=== PATIENT | female | born 1970 | race Caucasian/White ===

== ENCOUNTER 2016-07-10 23:23 | Observation (INO) | payer OTHER ==
[~2016-07-10] VITALS: Ht 165.1 cm; Wt 58.4 kg
[~2016-07-10 23:23] MED LIST: ACET-1256 PO; CITA10TA8 PO; IBUP-103 PO; OXYC1TAB3 PO
[2016-07-10] MEDS ORDERED: MULTI-VITAMIN INFUSION INJ 10 ML, THIAMINE HCL INJ 100 MG, FoLIC ACID INJ 1 MG in SODIU... IV ONE (23:45)
--- NOTE | 2016-07-10 23:49 | EMERGENCY ROOM VISIT NOTE ---
History Report prepared by Flor: Warner Lion Under the Supervision of: Dr. Samuel Sears M.D. First contact with patient: 23:27 Chief Complaint: NEURO SYMPTOMS Stated Complaint: NEURO SYMPTOMS/ALCOHOL USE History of Present Illness The patient is a 46 year old female who presents to the Emergency Room with complaints of sudden onset left sided facial numbness that began shortly prior to arrival. The patient states that it feels as though she was "shot up with Novocain" in the left side of her face. She is also complaining of left sided blurred vision, and dull left sided arm pain. The patient also noted a sharp pain in the center of her forehead that is radiating to the top of her head. The patient has a history of migraine headaches. She denies falling or hitting her head. The patient does admit to drinking 5-7 beers this evening prior to arrival. Source of History: patient Onset: Shortly [employer] Position: head (Left sided face) Quality: numbness Timing: other (Sudden Onset) Note: Left sided arm pain, left sided blurred vision Review of Systems See HPI for pertinent positives & negatives. A total of 10 systems reviewed and were otherwise negative. Past Medical & Surgical Medical Problems: (1) History of blood clot, left arm (2) left sided facial numbness (3) Numbness and tingling of left side of face (4) TIA (transient ischemic attack) Surgical Problems: (1) No history of previous surgery Family History FH: cancer Social History Smoking Status: Current Every Day Smoker Alcohol Use: occasionally Marital Status: Occupation Status: employed Current/Historical Medications Scheduled Citalopram Hydrobromide (Celexa), 40 MG PO DAILY Scheduled PRN Acetaminophen (Tylenol), 1,000 MG PO Q6H PRN for Pain Ibuprofen Tab (Advil), 400-600 MG PO Q6H PRN for Pain Allergies Coded Allergies: No Known Allergies (Verified , 07/11/16) Physical Exam Vital Signs Date Time Temp Pulse Resp B/P Pulse Ox O2 Delivery O2 Flow Rate FiO2 07/11/16 01:23 97 20 07/11/16 00:58 110/70 07/11/16 00:53 89 17 07/11/16 00:28 121/82 07/11/16 00:23 103 21 07/11/16 00:22 91 18 121/71 96 Room Air 2/11/17 00:15 121/71 07/10/16 23:39 88 07/10/16 23:26 36.9 91 18 127/84 94 Room Air 07/10/16 23:26 Room Air 07/10/16 23:25 127/84 Physical Exam GENERAL: Patient is moderately intoxicated on exam, smells heavily of alcohol, but with clear speech. HEENT: No acute trauma, normocephalic atraumatic, mucous membranes moist, no nasal congestion, no scleral icterus. NECK: No stridor, no adenopathy, no meningismus, trachea is midline. LUNGS: No dyspnea. Clear to auscultation and equal bilaterally. No wheeze, no rhonchi. HEART: Regular rate and rhythm. No murmurs, rubs, gallops appreciated. ABDOMEN: Soft, nontender, bowel sounds positive, no masses appreciated, no peritonitis. BACK: No midline tenderness, no CVA tenderness EXTREMITIES: Normal motion all extremities, no cyanosis, no edema. NEUROLOGIC: She has a perceived decreased sensation of her left face. Alert and oriented, no acute motor or sensory deficits, no focal weakness, cranial nerves grossly intact. SKIN: No rash, no jaundice, no diaphoresis. Medical Decision & Procedures ER Provider Diagnostic Interpretation: X ray results and stated below per my interpretation and radiologist interpretation. Other radiology results and stated below per my review and radiologist interpretation: CT SCAN OF THE BRAIN WITHOUT IV CONTRAST CLINICAL HISTORY: Intoxication. Left facial tingling. COMPARISON STUDY: No priors. TECHNIQUE: Unenhanced axial CT scan of the brain is performed from the vertex to the skull base. Automated dose control exposure was utilized. CT DOSE: 537.48 mGy.cm FINDINGS: Brain parenchyma: The brain parenchyma is normal in appearance. There is no hemorrhage, mass effect, or evidence of acute territorial ischemia by CT criteria. George-white matter is preserved. No extra-axial fluid collection is seen. Ventricles, sulci, cisterns: Normal in configuration. Intracranial vasculature: The visualized intracranial vasculature at the skull base is normal in appearance. Calvarium: Unremarkable. Sinuses and mastoids: The visualized paranasal sinuses are clear. The mastoid air cells are well pneumatized. Orbits: The bony orbits are grossly intact. IMPRESSION: No acute intracranial abnormality. Electronically signed by: Maikel Mullen M.D. 07/11/2016 12:06 AM Dictated Date/Time: 07/11/2016 12:03 AM Laboratory Results 07/10/16 23:55 Red Blood Count 4.61, Mean Corpuscular Volume 94.8, Mean Corpuscular Hemoglobin 33.0, Mean Corpuscular Hemoglobin Concent 34.8, Mean Platelet Volume 10.2, Neutrophils (%) (Auto) 47.5, Lymphocytes (%) (Auto) 44.1, Monocytes (%) (Auto) 6.3, Eosinophils (%) (Auto) 1.3, Basophils (%) (Auto) 0.6, Neutrophils # (Auto) 3.91, Lymphocytes # (Auto) 3.63, Monocytes # (Auto) 0.52, Eosinophils # (Auto) 0.11, Basophils # (Auto) 0.05 07/10/16 23:55 Test 07/10/16 23:45 07/10/16 23:55 Urine Color YELLOW Urine Appearance CLEAR (CLEAR) Urine pH 5.5 (4.5-7.5) Urine Specific [place] 1.000 (1.000-1.030) Urine Protein NEG (NEG) Urine Glucose (UA) NEG (NEG) Urine Ketones NEG (NEG) Urine Occult Blood 3+ (NEG) Urine Nitrite NEG (NEG) Urine Bilirubin NEG (NEG) Urine Urobilinogen NEG (NEG) Urine Leukocyte Esterase NEG (NEG) Urine WBC (Auto) /hpf (0-5) Urine RBC (Auto) /hpf (0-4) Urine Hyaline Casts (Auto) /lpf (0-5) Urine Epithelial Cells (Auto) /lpf (0-5) Urine Bacteria (Auto) (NEG) Urine RBC 5-10 /hpf (0-4) Urine WBC 0 /hpf (0-5) Urine Epithelial Cells >30 /lpf (0-5) Urine Bacteria 1+ (NEG) Urine Yeast (Auto) (NONE PRSENT) Urine Test NEG (NEG) Urine Opiates Screen NEG (NEG) Urine Methadone, Qualitative NEG (NEG) Urine Barbiturates NEG (NEG) Urine Phencyclidine (PCP) Level NEG (NEG) Ur Amphetamine/Methamphetamine NEG (NEG) MDMA (Ecstasy) Screen NEG (NEG) Urine Benzodiazepines Screen NEG (NEG) Urine Cocaine Metabolite NEG (NEG) Urine Marijuana (THC) NEG (NEG) White Blood Count 8.24 K/uL (4.8-10.8) Red Blood Count 4.61 M/uL (4.2-5.4) Hemoglobin 15.2 g/dL (12.0-16.0) Hematocrit 43.7 % (37-47) Mean Corpuscular Volume 94.8 fL (80-100) Mean Corpuscular Hemoglobin 33.0 pg (25-34) Mean Corpuscular Hemoglobin Concent 34.8 g/dl (32-36) Platelet Count 246 K/uL (130-400) Mean Platelet Volume 10.2 fL (7.4-10.4) Neutrophils (%) (Auto) 47.5 % Lymphocytes (%) (Auto) 44.1 % Monocytes (%) (Auto) 6.3 % Eosinophils (%) (Auto) 1.3 % Basophils (%) (Auto) 0.6 % Neutrophils # (Auto) 3.91 K/uL (1.4-6.5) Lymphocytes # (Auto) 3.63 K/uL (1.2-3.4) Monocytes # (Auto) 0.52 K/uL (0.11-0.59) Eosinophils # (Auto) 0.11 K/uL (0-0.5) Basophils # (Auto) 0.05 K/uL (0-0.2) RDW Standard Deviation 46.3 fL (36.4-46.3) RDW Coefficient of Variation 13.3 % (11.5-14.5) Immature Granulocyte % (Auto) 0.2 % Immature Granulocyte # (Auto) 0.02 K/uL (0.00-0.02) Prothrombin Time 10.3 SECONDS (9.0-12.0) Prothromb Time International Ratio 1.0 (0.9-1.1) Activated Partial Thromboplast Time 28.4 SECONDS (21.0-31.0) Partial Thromboplastin Ratio 1.1 Carboxyhemoglobin 9.0 % THgb Anion Gap 13.0 mmol/L (3-11) Est Creatinine Clear Calc Drug Dose 86.6 ml/min Estimated GFR () 114.5 Estimated GFR (Non- 98.8 BUN/Creatinine Ratio 7.3 (10-20) Calcium Level 8.1 mg/dl (8.5-10.1) Magnesium Level 2.0 mg/dl (1.8-2.4) Total Bilirubin 0.3 mg/dl (0.2-1) Direct Bilirubin < 0.1 mg/dl (0-0.2) Aspartate Amino Transf (AST/SGOT) 13 U/L (15-37) Alanine Aminotransferase (ALT/SGPT) 17 U/L (12-78) Alkaline Phosphatase 69 U/L (45-117) Troponin I < 0.015 ng/ml (0-0.045) Total Protein 7.5 gm/dl (6.4-8.2) Albumin 3.7 gm/dl (3.4-5.0) Ethyl Alcohol mg/dL 202.0 mg/dl (0-3) Laboratory results as reviewed by me. Medications Administered Medications (Trade) Dose Ordered Sig/Marci Route Start Time Stop Time Status Last Admin Dose Admin Multivitamins/ Thiamine HCl/ Folic Acid/Sodium Chloride (Mvi Infusion Inj/Vitamin B-1 Inj/Folvite Inj/ Nss 1000ml) 1,011.2 ml @ 500 mls/ hr Q2H2M ONCE IV 07/10/16 23:45 07/11/16 01:46 DC 07/11/16 00:16 500 MLS/HR Acetaminophen (Tylenol Tab) 1,000 mg NOW STAT PO 07/11/16 01:20 07/11/16 01:21 DC 07/11/16 01:25 1,000 MG ED Course 2328: The patient was evaluated in room B9. A complete history and physical exam was performed. 2345: Ordered Multivitamins 1,011.2 mL IV 0009: I checked on the patient at this time, she is still having tingling in her face. 0101: The patient is feeling well, her face is still tingling 0117: I discussed the case with Dr. Cory Guillen [facility] Hospitalist at this time , she will evaluate the patient for further treatment. 0120: Ordered Acetaminophen 1000 mg PO. Medical Decision Differential: Sepsis, Infectious (UTI/Pneumonia/Meningitis/etc), Metabolic/ Electrolyte Abnormality, Cardiac, Hepatic, Endocrine, Toxicologic, Neurologic, amongst other pathologies entertained. Intoxicated 46 yr old female arrives with complaint of left facial paresthesias and mildly blurry vision left eye with unclear timeline other than starting this evening. Included in paresthesias left arm discomfort. No neuro deficits by examination. With intoxication I do not feel that TPA would be appropriate in this patient, especially given lack of neuro deficits. She was in enclosed room thus carboxyhemoglobin which at 9 and her being heavy smoker is within limits. Work-up essentially unremarkable otherwise. CT head without acute findings. She notes improving symptoms while in ED though not resolved. Given IV banana bag given alcohol history. Consults Time Called: [phone] Consulting Physician: Dr. Harpal Pride Hospitalist Returned Call: [phone] I discussed the case with Dr. Cory Pride Hospitalist at this time, she will evaluate the patient for further treatment. Impression Primary Impression: Facial paresthesia Additional Impressions: Arm paresthesia, left Alcohol intoxication Scribe Attestation The scribe's documentation has been prepared under my direction and personally reviewed by me in its entirety. I confirm that the note above accurately reflects all work, treatment, procedures, and medical decision making performed by me. Departure Information Dispostion Being Evaluated By Hospitalist Referrals Love Chan D.O. (PCP) Patient Instructions [facility] Problem Qualifiers Additional Impressions: Alcohol intoxication Complication of substance-induced condition: uncomplicated Qualified Codes: F10.120 - Alcohol abuse with intoxication, uncomplicated
[2016-07-11] VITALS (9 sets, daily range): BP systolic 100–123; BP diastolic 61–79; PULSE 73–97; TEMP 36.6–36.8; O2SAT 95–100; Ht 165.1 cm; Wt 58.4 kg
[2016-07-11] MEDS ORDERED: CITA40TA12 PO (00:05)
--- NOTE | 2016-07-11 00:07 | DIAGNOSTIC IMAGING REPORT ---
CT SCAN OF THE BRAIN WITHOUT IV CONTRAST CLINICAL HISTORY: Intoxication. Left facial tingling. COMPARISON STUDY: No priors. TECHNIQUE: Unenhanced axial CT scan of the brain is performed from the vertex to the skull base. Automated dose control exposure was utilized. CT DOSE: 537.48 mGy.cm FINDINGS: Brain parenchyma: The brain parenchyma is normal in appearance. There is no hemorrhage, mass effect, or evidence of acute territorial ischemia by CT criteria. George-white matter is preserved. No extra-axial fluid collection is seen. Ventricles, sulci, cisterns: Normal in configuration. Intracranial vasculature: The visualized intracranial vasculature at the skull base is normal in appearance. Calvarium: Unremarkable. Sinuses and mastoids: The visualized paranasal sinuses are clear. The mastoid air cells are well pneumatized. Orbits: The bony orbits are grossly intact. IMPRESSION: No acute intracranial abnormality. Electronically signed by: Maikel Mullen M.D. 07/11/2016 12:06 AM Dictated Date/Time: 07/11/2016 12:03 AM
[2016-07-11 00:09] LABS: BASO % 0.6 %; BASO ABS # 0.05 K/uL (0-0.2); COMPLETE YES; EOS % 1.3 %; HEMATOCRIT 43.7 % (37-47); IG% 0.2 %; LYMPH % 44.1 %; LYMPH ABS # 3.63 K/uL (1.2-3.4); MEAN CELL VOLUME 94.8 fL (80-100); MEAN CORPUSCULAR HGB CONC 34.8 g/dl (32-36); MEAN PLATELET VOLUME 10.2 fL (7.4-10.4); MONO % 6.3 %; NEUT % 47.5 %; PLATELET COUNT 246 K/uL (130-400); RED BLOOD COUNT 4.61 M/uL (4.2-5.4); WHITE BLOOD COUNT 8.24 K/uL (4.8-10.8)
[2016-07-11 00:21] LABS: URINE APPEARANCE CLEAR (CLEAR); URINE BILIRUBIN NEG (NEG); URINE COLOR YELLOW; URINE NITRITE NEG (NEG); URINE PH 5.5 (4.5-7.5); UROBILINOGEN NEG (NEG); ZZUR CULT IF INDIC CLEAN CATCH YES
[2016-07-11 00:22] LABS: MANUAL MICROSCOPIC REQUIRED? YES; REVIEW REQ? NO
[2016-07-11 00:28] LABS: ALT/SGPT 17 U/L (12-78); AST/SGOT 13 U/L (15-37); BLOOD UREA NITROGEN 5 mg/dl (7-18); BUN/CREATININE RATIO 7.3 (10-20); CALCIUM 8.1 mg/dl (8.5-10.1); CARBON DIOXIDE 25 mmol/L (21-32); CHLORIDE 99 mmol/L (98-107); CREATININE 0.73 mg/dl (0.60-1.20); GLUCOSE 75 mg/dl (70-99); PARTIAL THROMBOPLASTIN RATIO 1.1; POTASSIUM 3.2 mmol/L (3.5-5.1); PROTHROMBIN TIME (PATIENT) 10.3 SECONDS (9.0-12.0); SODIUM 137 mmol/L (136-145)
[2016-07-11 00:33] LABS: URINE WBC 0 /hpf (0-5)
[2016-07-11 00:33] LABS: ALKALINE PHOSPHATASE 69 U/L (45-117)
[2016-07-11 00:34] LABS: URINE BACTERIA 1+ (NEG)
[2016-07-11 00:38] LABS: BENZODIAZEPINE, URINE NEG (NEG); COCAINE,URINE NEG (NEG); PHENCYCLIDINE, URINE NEG (NEG)
[2016-07-11] MEDS ORDERED: ACETAMINOPHEN 500 MG TAB PO STA (01:20)
--- NOTE | 2016-07-11 01:24 | History and Physical ---
History & Physical Date & Time of Service: Jul 11, 2016 at 01:24 Chief Complaint: Neuro Symptoms/Alcohol Use Primary Care Physician: Love Chan D.O. History of Present Illness Source: patient This a 46 yo F with Hx of Depression , tobacco abuse disorder, ETOH abuse , presented to ED with complain of sudden onset of left sided facial numbness, left arm weakness she mentioned her left side of mouth including teeth and gum felt numb had left sided headache, associated with transient blurred vision resolved after arrival to ED pt is very a very poor historian appears to be intoxicated , disheveled could not tell be when the symptom started she drinks heavily approx 12-20 beer in weekend admits of drinking 8 beers prior to arrival to ED no hx of trauma or fall denies of any chest pain , SOB , had dizzy spell ,felt lightheaded when standing up , no syncope in the ED CT head was negative for CVA her symptom markedly improved after few hours serum ETOH leval > 200 Past Medical/Surgical History Medical Problems: (1) History of blood clot, left arm Status: Chronic Family History FH: cancer Cancer -Mother Breast/ age 45 and then again 15yrs later Cancer Sister 51 colon Diabetes -Mother Heart Disorder -Mother uncertain type Heart Disorder -Son palpitations Hypertension -Mother Neurological -Disorder Son tourettes syndrome Social History Smoking Status: Current Every Day Smoker Marital Status: Occupational Status: employed Multi-Drug Resistant Organisms History of MDRO: No Allergies Coded Allergies: No Known Allergies (Verified , 07/11/16) Home Medications Scheduled Citalopram Hydrobromide (Celexa), 40 MG PO DAILY Scheduled PRN Acetaminophen (Tylenol), 1,000 MG PO Q6H PRN for Pain Ibuprofen Tab (Advil), 400-600 MG PO Q6H PRN for Pain Review of Systems Constitutional: + fatigue, + weakness Eyes: No diplopia, No discharge, No eye pain, No problem reported, No redness, No worsening of vision Respiratory: No cough, No dyspnea at rest, No dyspnea on exertion, No hemoptysis, No problem reported, No shortness of breath, No sputum, No wheezing Cardiovascular: No PND, No chest pain, No claudication, No edema, No orthopnea , No palpitations, No problem reported Abdomen: No GI bleeding, No constipation, No diarrhea, No nausea, No pain, No problem reported, No vomiting Musculoskeletal: No calf pain, No joint pain, No muscle pain, No problem reported, No swelling Genitourinary - Female: No dysmenorrhea, No dysuria, No hematuria, No menorrhagia, No metrorrhagia, No , No problem reported, No rash, No urinary frequency, No urinary incontinence, No urinary retention, No urinary urgency, No vaginal bleeding, No vaginal discharge, No vaginal itching, No vulvodynia Neurologic: + problem reported (left facial numbness -improved , no facial droop , left arm numbness trasnsitent ) Psychiatric: + depression symptoms Physical Exam Vital Signs Date Time Temp Pulse Resp B/P Pulse Ox O2 Delivery O2 Flow Rate FiO2 07/11/16 00:22 91 18 121/71 96 Room Air 07/10/16 23:39 88 07/10/16 23:26 36.9 91 18 127/84 94 Room Air 07/10/16 23:26 Room Air General Appearance: no apparent distress Head: normocephalic, atraumatic Eyes: normal inspection, PERRL, EOMI Neck: supple, thyroid normal, no carotid bruits, trachea midline Respiratory/Chest: chest non-tender, lungs clear, normal breath sounds, no respiratory distress Cardiovascular: regular rate, rhythm, no edema, no gallop, no JVD, no murmur, normal peripheral pulses Abdomen/GI: normal bowel sounds, non tender, soft Extremities/Musculoskelatal: normal inspection, no calf tenderness, normal capillary refill, no pedal edema Neurologic/Psych: oven heater II-XII nml as tested, no motor/sensory deficits, + pertinent finding (groggy /sedated , able to answer questions appropraitely , no facial droop, normal muslce strength ) Skin: normal color, warm/dry, no rash Lymphatic: no adenopathy Diagnostics Laboratory Results Results Past 24 Hours Test 07/10/16 23:45 07/10/16 23:55 Range/Units Urine Color YELLOW Urine Appearance CLEAR CLEAR Urine pH 5.5 4.5-7.5 Urine Specific [place] 1.000 1.000-1.030 Urine Protein NEG NEG Urine Glucose (UA) NEG NEG Urine Ketones NEG NEG Urine Occult Blood 3+ NEG Urine Nitrite NEG NEG Urine Bilirubin NEG NEG Urine Urobilinogen NEG NEG Urine Leukocyte Esterase NEG NEG Urine WBC (Auto) 0-5 /hpf Urine RBC (Auto) 0-4 /hpf Urine Hyaline Casts (Auto) 0-5 /lpf Urine Epithelial Cells (Auto) 0-5 /lpf Urine Bacteria (Auto) NEG Urine RBC 5-10 0-4 /hpf Urine WBC 0 0-5 /hpf Urine Epithelial Cells >30 0-5 /lpf Urine Bacteria 1+ NEG Urine Yeast (Auto) NONE PRSENT Urine Test NEG NEG Urine Opiates Screen NEG NEG Urine Methadone, Qualitative NEG NEG Urine Barbiturates NEG NEG Urine Phencyclidine (PCP) Level NEG NEG Ur Amphetamine/Methamphetamine NEG NEG MDMA (Ecstasy) Screen NEG NEG Urine Benzodiazepines Screen NEG NEG Urine Cocaine Metabolite NEG NEG Urine Marijuana (THC) NEG NEG White Blood Count 8.24 4.8-10.8 K/uL Red Blood Count 4.61 4.2-5.4 M/uL Hemoglobin 15.2 12.0-16.0 g/dL Hematocrit 43.7 37-47 % Mean Corpuscular Volume 94.8 80-100 fL Mean Corpuscular Hemoglobin 33.0 25-34 pg Mean Corpuscular Hemoglobin Concent 34.8 32-36 g/dl Platelet Count 246 130-400 K/uL Mean Platelet Volume 10.2 7.4-10.4 fL Neutrophils (%) (Auto) 47.5 % Lymphocytes (%) (Auto) 44.1 % Monocytes (%) (Auto) 6.3 % Eosinophils (%) (Auto) 1.3 % Basophils (%) (Auto) 0.6 % Neutrophils # (Auto) 3.91 1.4-6.5 K/uL Lymphocytes # (Auto) 3.63 1.2-3.4 K/uL Monocytes # (Auto) 0.52 0.11-0.59 K/uL Eosinophils # (Auto) 0.11 0-0.5 K/uL Basophils # (Auto) 0.05 0-0.2 K/uL RDW Standard Deviation 46.3 36.4-46.3 fL RDW Coefficient of Variation 13.3 11.5-14.5 % Immature Granulocyte % (Auto) 0.2 % Immature Granulocyte # (Auto) 0.02 0.00-0.02 K/uL Prothrombin Time 10.3 9.0-12.0 SECONDS Prothromb Time International Ratio 1.0 0.9-1.1 Activated Partial Thromboplast Time 28.4 21.0-31.0 SECONDS Partial Thromboplastin Ratio 1.1 Carboxyhemoglobin 9.0 % THgb Sodium Level 137 136-145 mmol/L Potassium Level 3.2 3.5-5.1 mmol/L Chloride Level 99 98-107 mmol/L Carbon Dioxide Level 25 21-32 mmol/L Anion Gap 13.0 3-11 mmol/L Blood Urea Nitrogen 5 7-18 mg/dl Creatinine 0.73 0.60-1.20 mg/dl Est Creatinine Clear Calc Drug Dose 86.6 ml/min Estimated GFR () 114.5 Estimated GFR (Non- 98.8 BUN/Creatinine Ratio 7.3 10-20 Random Glucose 75 70-99 mg/dl Calcium Level 8.1 8.5-10.1 mg/dl Magnesium Level 2.0 1.8-2.4 mg/dl Total Bilirubin 0.3 0.2-1 mg/dl Direct Bilirubin < 0.1 0-0.2 mg/dl Aspartate Amino Transf (AST/SGOT) 13 15-37 U/L Alanine Aminotransferase (ALT/SGPT) 17 12-78 U/L Alkaline Phosphatase 69 45-117 U/L Troponin I < 0.015 0-0.045 ng/ml Total Protein 7.5 6.4-8.2 gm/dl Albumin 3.7 3.4-5.0 gm/dl Ethyl Alcohol mg/dL 202.0 0-3 mg/dl Microbiology Results 07/10/16 Urine Culture, Received Pending Diagnostic Radiology CT SCAN OF THE BRAIN WITHOUT IV CONTRAST CLINICAL HISTORY: Intoxication. Left facial tingling. IMPRESSION: No acute intracranial abnormality. Impression Assessment and Plan LEFT SIDED FACIAL NUMBNESS atypical for CVA rule out TIA vs atypical migraine attach ( hx of migraine in past ) CT head negative for CVA MRI of brain ordered monitor neuro checks carotid Doppler, ECHO , fasting lipid profile as per stroke protocol Neurology eval requested EEG in AM R/o absence seizure ALCOHOL INTOXICATION : ETOH level > 200 IV Banana bag IV Ativan /Librium as per Alcohol ( ETOH )withdrawal CIWA protocol caution for DT -severe ETOH withdrawal monitor in Tele TOBACCO ABUSE DISORDER: smoking cessation counselling provided Nicotine patch DEPRESSION : Cont out pt SSRI FULL CODE DVT PROPHYLAXIS : low risk SCD and teds ambulate DISPOSITION ; expected to be discharged home when medically stable Medicine follow up with Dr Love Chan Level of Care Telemetry Resuscitation Status FULL RESUSCITATION VTE Prophylaxis VTE Risk Assessment Done? Y/N: Yes Risk Level: Low Given or contraindicated: TSteve Stockings, SCD's
[2016-07-11] MEDS ORDERED: ONDANSETRON INJ 2 MG/ML 2 ML VIAL IV PRN (01:30)
[2016-07-11] MEDS ORDERED: ACETAMINOPHEN 325 MG TAB PO PRN (01:30)
[2016-07-11] MEDS ORDERED: ALUMINUM/MAGNESIUM/SIMETH (MAALOX MAX) 30 ML UDC PO PRN (01:30)
[2016-07-11] MEDS ORDERED: PHARMACIST DISCHARGE MED REC CONSULT PRN (01:30)
[2016-07-11] MEDS ORDERED: POLYETHYLENE (MIRALAX) 17 GM PACK PO PRN (01:30)
[2016-07-11] MEDS ORDERED: MAGNESIUM HYDROXIDE SUSP 30 ML UDC PO PRN (01:30)
[2016-07-11] MEDS ORDERED: LORAZEPAM 1 MG TAB PO PRN (01:30)
[2016-07-11] MEDS ORDERED: POTASSIUM CHLR 10 MEQ / WTR 20 MEQ in PREMIXED WATER 100 ML IV STA (01:31)
[2016-07-11] MEDS ORDERED: POTASSIUM CHLORIDE 10 MEQ / 100ML WTR IV ONE (01:42)
[2016-07-11] MEDS ORDERED: IV FLUIDS COMPLETED PRN (02:15)
[2016-07-11] MEDS ORDERED: MULTI-VITAMIN INFUSION INJ 10 ML, THIAMINE HCL INJ 100 MG, FoLIC ACID INJ 1 MG in SODIU... IV ONE (02:30)
[2016-07-11] MEDS: CHLORDIAZEPOXIDE 25 MG CAP PO SCH ×4 (06:20→23:31)
[2016-07-11 08:03] LABS: CHOLESTEROL/HDL RATIO 2.6
[2016-07-11] MEDS: ASPIRIN 81 MG ECTAB PO SCH (08:10)
[2016-07-11] MEDS: NICOTINE 21 MG/24 HR TDSY TD SCH (08:13)
--- NOTE | 2016-07-11 10:30 | PROGRESS NOTE ---
DATE: 07/11/2016 REASON FOR CONSULTATION: Numbness in left face. HISTORY OF PRESENT ILLNESS: The patient is a 46-year-old right-handed female who presented to the Emergency Room last evening with complaints while painting of a sudden onset of left facial numbness, although not tingling. She also complained at that time blurred vision on the left without any clear scintillations and a dull left-sided arm pain without any chest pain. About an hour after the onset of these symptoms, she developed a bitemporal frontal headache which was pressure superimposed with some stabbing, it was a little bit different than her typical migraine. The headache has resolved, but the numbness in the face has persisted albeit it is improving after more than 12 hours. The patient has a history of common migraines. The headaches are usually bitemporal, throbbing. No nausea or vomiting. There may be some light sensitivity. She has never had unilateral weakness, numbness, speech or language dysfunction associated with them. They are rare, occurring only several times per year. She has been recently well. She has not had any head or neck trauma, medical or dental procedures. There has been no chest pain, palpitation, shortness of breath. Other than having some mild cold symptoms, she has been well. She took some Advil Cold preparation yesterday but otherwise has only been using her typical prescription medications. She has no prior history of neurologic dysfunction. No history of rheumatic fever or murmur. She had what sounds to me like a superficial thrombophlebitis related to an IV in the left arm. She was briefly on Lovenox but not continued on Coumadin. She has a history of 1 first trimester miscarriage. She has no personal history of cancer. MEDICAL HISTORY: Notable for blood clot in the arm and anxiety. SOCIAL HISTORY: Smokes. Drinks alcohol. Tox screen positive for alcohol. Employed and no drug use. FAMILY HISTORY: No family history of early heart disease or DVT. Father is now elderly and has DVT. Mother, breast cancer at 45 and then recurrence at 60. Sister with colon cancer. Mother, diabetes. Her son has Tourette's. ALLERGIES: None. HOME MEDICATIONS: Celexa, Tylenol, ibuprofen. CT of the head, noncontrast, which I have reviewed is unremarkable. EKG on admission, normal sinus rhythm, low-voltage QRS. LABORATORY DATA: White count 8.24, H\T\H 15.2/43.7, platelet count 246. Carboxyhemoglobin 9. PT 10.3, PTT 28.4. Chemistry profile notable for potassium 3.9, normal BUN and creatinine. Random glucose 75. Transaminases normal, LDL 57. Urinalysis notable for 5-10 reds, greater than 30 epis, 1+ bacteria. test negative. Tox screen, alcohol 202. PHYSICAL EXAMINATION: VITAL SIGNS: 36.8, 86, 20, 115/73. GENERAL: The patient is awake and alert. Speech and language are normal. There is no right/left confusion and no aphasia. She is oriented x3. NECK: There are no carotid bruits. HEART: No heart murmurs. Heart is regular rate and rhythm. LUNGS: Clear. ABDOMEN: Soft. EXTREMITIES: No calf swelling or tenderness. Posterior tibial pulses are intact. HEAD: Normocephalic, atraumatic. No temporal tenderness. No sinus tenderness. NEUROLOGIC: Pupils are equal. I had difficulty visualizing the optic nerves. There are normal nieto and motility. Facial sensation is diminished in anterior left V3 to light touch and temperature. Otherwise, sensation is normal. The face is symmetric. Tongue is midline. Speech is nondysarthric. Motor: There is no resting tremor or cogwheel rigidity. There is full strength, no drift. Normal rapid alternating movement. Symmetric reflexes. Downgoing toes. [id number] and [id number] are normal. Her gait is unremarkable. Sensation is intact to all modalities, light touch, temperature, vibration. IMPRESSION: I suspect this represents a complicated migraine. PLAN: MRI brain, and depending on its results, it will drive any additional workup. I would recommend a carotid ultrasound, echocardiography with bubble study. I am assuming she has had a workup for hypercoagulable state, although if the MRI shows an infarct, I would repeat that. Telemetric monitoring. Antiplatelet therapy with aspirin at present. Smoking cessation advised. We will follow with you. CATHLEEN
--- NOTE | 2016-07-11 13:40 | DIAGNOSTIC IMAGING REPORT ---
ULTRASOUND OF THE CAROTID ARTERIES CLINICAL HISTORY: Intoxication. Left facial tingling. COMPARISON STUDY: No priors. TECHNIQUE: Real-time, grayscale, and color Doppler sonography of the carotid arteries is performed. Images are reviewed in the transverse and longitudinal planes. FINDINGS: Blood pressure in the right arm measures 102/69 and blood pressure in the left arm measures 100/69. The carotid arteries are patent bilaterally and demonstrate antegrade flow. There is no significant atherosclerotic plaque seen. Normal doppler arterial waveforms are seen throughout. Velocity measurements are listed below. Common carotid peak systolic velocity (cm/sec): RIGHT: 84 LEFT: 103 ICA proximal peak systolic velocity (cm/sec): RIGHT: 58 LEFT: 71 ICA mid peak systolic velocity (cm/sec): RIGHT: 65 LEFT: 59 ICA distal peak systolic velocity (cm/sec): RIGHT: 75 LEFT: 57 ICA/CC peak systolic ratio: RIGHT: 0.9 LEFT: 0.7 Antegrade flow was shown in the vertebral arteries. The external carotid arteries are patent. IMPRESSION: 1. There is no sonographic evidence of hemodynamically significant stenosis in the right or left carotid arterial system. 2. Antegrade flow is shown in the vertebral arteries. Electronically signed by: Maikel Mullen M.D. 07/11/2016 1:39 PM Dictated Date/Time: 07/11/2016 1:38 PM
--- NOTE | 2016-07-11 13:57 | DIAGNOSTIC IMAGING REPORT ---
MRI OF THE BRAIN COMBO CLINICAL HISTORY: Left facial numbness. Intoxication. COMPARISON STUDY: CT of the brain dated 07/11/16. TECHNIQUE: MRI of the brain was performed utilizing various T1 and T2-weighted sequences in the axial, sagittal, and coronal planes. Contrast-enhanced sequences were acquired following the administration of 6 cc of Gadavist. The examination is modestly degraded by motion artifact. FINDINGS: Brain parenchyma: The brain parenchyma is normal in appearance. There is no hemorrhage or mass effect. There is no restricted diffusion to suggest acute ischemia. No enhancing mass lesion is identified on the postcontrast images. George-white matter differentiation is preserved. No extra-axial fluid collection is seen. The cerebellar tonsils are normal in configuration. Ventricles, sulci, and cisterns: Normal in configuration. Pituitary and sella: Unremarkable. Intracranial vasculature: Normal flow voids are maintained at the skull base. Orbits: The bony orbits are grossly intact. Orbital contents are normal in appearance. Sinuses and mastoids: Mucosal thickening and retention cyst are seen in the right maxillary antrum. Trace mucosal thickening is also seen in the right sphenoid sinus. The remaining paranasal sinuses and mastoid air cells are clear. Calvarium: Unremarkable. Cervical cord: Partially visualized cervical spinal cord is normal in morphology and signal intensity. IMPRESSION: No acute intracranial abnormality. Electronically signed by: Maikel Mullen M.D. 07/11/2016 1:56 PM Dictated Date/Time: 07/11/2016 1:53 PM
[2016-07-11] MEDS ORDERED: THIAMINE HCL 100 MG/ML 2 ML VIAL IM STA (18:23)
[2016-07-12 00:21] VITALS: BP 118/74; PULSE 75; TEMP 36.8; O2SAT 96
[2016-07-12 04:50] VITALS: BP 128/80; PULSE 81; TEMP 36.4; O2SAT 96
[2016-07-12 07:17] LABS: HEMATOCRIT 41.6 % (37-47); MEAN CELL VOLUME 94.3 fL (80-100); MEAN CORPUSCULAR HGB CONC 33.9 g/dl (32-36); MEAN PLATELET VOLUME 10.1 fL (7.4-10.4); PLATELET COUNT 238 K/uL (130-400); RED BLOOD COUNT 4.41 M/uL (4.2-5.4); WHITE BLOOD COUNT 6.79 K/uL (4.8-10.8)
[2016-07-12 07:51] LABS: BUN/CREATININE RATIO 9.5 (10-20); CALCIUM 8.5 mg/dl (8.5-10.1); CREATININE 0.88 mg/dl (0.60-1.20); MAGNESIUM 2.1 mg/dl (1.8-2.4); PHOSPHORUS 2.7 mg/dl (2.5-4.9); POTASSIUM 4.1 mmol/L (3.5-5.1)
[2016-07-12 08:00] VITALS: BP 115/75; PULSE 71; TEMP 36.6; O2SAT 95; O2SAT 97
[2016-07-12] MEDS ORDERED: CHLORDIAZEPOXIDE 25 MG CAP PO SCH (08:00)
--- NOTE | 2016-07-12 08:51 | ECHOCARDIOGRAM REPORT ---
*NOTICE TO RECEIVING CONSTITUTION PARTY AGENCY This information is strictly Confidential and protected under [place] law. [place] law prohibits you from making any further disclosure of this information unless further disclosure is expressly permitted by the written consent of the person to whom it pertains or is authorized by law. A general authorization for the release of medical or other information is not sufficient for this purpose. Hospital accepts no responsibility if the information is made available to any other person, INCLUDING THE PATIENT. Interpretation Summary * Name: LUCIAN GORDON Study Date: 07/11/2016 03:32 PM BP: 100/61 mmHg * Patient Location: [facility]\S\N284\S\2 HR: 83 * : 1970 (M/d/yyyy) Gender: Female Height: 65 in * Age: 46 yrs Ethnicity: CA Weight: 135 lb * Ordering Physician: Lin Ray * Referring Physician: Self, Referred * Performed By: Alexander Huerta RDCS * * Reason For Study: Cerebral ischemia/embolus * BSA: 1.7 m2 * This was essentially a normal study. * -- Conclusions -- * Injection of contrast documented no interatrial shunt. * The interatrial septum is intact with no evidence for an atrial septal defect. Procedure Details * A complete two-dimensional transthoracic echocardiogram was performed (2D, M-mode, Doppler and color flow Doppler). * The study was technically adequate. * A saline contrast injection was performed to assess for cardiac shunting. * The injection was performed through an intravenous line in the right arm. * The attending nurse who injected the saline contrast was JODIE Motley. * A total of 10 cc of agitated saline was given. Left Ventricle * The left ventricle is normal in size. * There is normal left ventricular wall thickness. * Left ventricular systolic function is normal. * Ejection Fraction = 65-70%. Right Ventricle * The right ventricle is normal in size and function. * There is normal right ventricular wall thickness. * The right ventricular systolic function is normal. Atria * The left atrial size is normal. * Right atrial size is normal. * The interatrial septum is intact with no evidence for an atrial septal defect. * Injection of contrast documented no interatrial shunt. Mitral Valve * The mitral valve is normal in structure and function. * There is no mitral valve stenosis. * There is no mitral regurgitation noted. Tricuspid Valve * The tricuspid valve is normal in structure and function. * There is trace tricuspid regurgitation. Aortic Valve * The aortic valve is normal in structure and function. * No aortic regurgitation is present. Pulmonic Valve * The pulmonic valve is normal in structure and function. * There is no pulmonic valvular regurgitation. Great Vessels * The aortic root is normal size. * No obvious dissection could be visualized. * The pulmonary artery is normal size. Pericardium/Pleural * There is no pericardial effusion. MMode 2D Measurements and Calculations IVSd 0.83 cm IVSs 1.3 cm LVIDd 4.2 cm LVIDs 2.5 cm LVPWd 0.80 cm LVPWs 1.5 cm IVS/LVPW 1.0 FS 41.8 % EDV(Teich) 80.4 ml ESV(Teich) 21.6 ml EF(Teich) 73.2 % EDV(cubed) 76.3 ml ESV(cubed) 15.0 ml EF(cubed) 80.3 % % IVS thick 55.4 % % LVPW thick 88.6 % LV mass(C)d 106.0 grams LV mass(C)dI 63.3 grams/m\S\2 LV mass(C)s 110.2 grams LV mass(C)sI 65.8 grams/m\S\2 SV(Teich) 58.8 ml SI(Teich) 35.2 ml/m\S\2 SV(cubed) 61.3 ml SI(cubed) 36.6 ml/m\S\2 Ao root diam 3.2 cm Ao root area 8.2 cm\S\2 ACS 1.9 cm LA dimension 3.2 cm asc Aorta Diam 3.1 cm LA/Ao 0.99 LVOT diam 2.0 cm LVOT area 3.2 cm\S\2 LVAd ap4 19.0 cm\S\2 LVLd ap4 7.0 cm EDV(MOD-sp4) 43.0 ml LVAs ap4 9.3 cm\S\2 LVLs ap4 5.9 cm ESV(MOD-sp4) 13.0 ml EF(MOD-sp4) 69.8 % LVAd ap2 19.9 cm\S\2 LVLd ap2 7.5 cm EDV(MOD-sp2) 45.0 ml LVAs ap2 10.7 cm\S\2 LVLs ap2 6.4 cm ESV(MOD-sp2) 15.0 ml EF(MOD-sp2) 66.7 % SV(MOD-sp4) 30.0 ml SI(MOD-sp4) 17.9 ml/m\S\2 SV(MOD-sp2) 30.0 ml SI(MOD-sp2) 17.9 ml/m\S\2 Doppler Measurements and Calculations MV E max lorie 87.9 cm/sec MV A max lorie 64.2 cm/sec MV E/A 1.4 MV dec time 0.14 sec Ao V2 max 122.5 cm/sec Ao max PG 6.0 mmHg Ao max PG (full) 1.8 mmHg RENEE(V,A) 2.7 cm\S\2 RENEE(V,D) 2.7 cm\S\2 LV V1 max PG 4.2 mmHg LV V1 max 102.8 cm/sec PA V2 max 82.6 cm/sec PA max PG 2.7 mmHg
[2016-07-12] MEDS ORDERED: THIAMINE HCL 100 MG/ML 2 ML VIAL IM SCH (09:00)
[2016-07-12] MEDS: NICOTINE 21 MG/24 HR TDSY TD SCH (09:00)
[2016-07-12] MEDS: ASPIRIN 81 MG ECTAB PO SCH (09:01)
--- NOTE | 2016-07-12 09:23 | Progress Note ---
Internal Med Progress Note Date of Service: Jul 12, 2016. Provider Documentation: SUBJECTIVE: Patient is alert/awake and is in no apparent distress. Her numbness of face has resolved. Denies any visual or auditory symptoms. Denies any headache. has been able to walk in the room without any symptoms. OBJECTIVE: Vital Signs-as noted below Examination: General Appearance: Alert/Awake and is in no apparent distress Head: normocephalic, atraumatic Eyes: normal inspection, PERRL, EOMI Neck: supple, thyroid normal, no carotid bruits, trachea midline Respiratory/Chest: chest non-tender, lungs clear, normal breath sounds, no respiratory distress Cardiovascular: regular rate, rhythm, no edema, no gallop, no JVD, no murmur, normal peripheral pulses Abdomen/GI: normal bowel sounds, non tender, soft Extremities/Musculoskeletal: normal inspection, no calf tenderness, normal capillary refill, no pedal edema 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 Skin: normal color, warm/dry, no rash Lymphatic: no adenopathy Lab data as noted below. ASSESSMENT & PLAN: CT SCAN OF THE BRAIN WITHOUT IV CONTRAST IMPRESSION: No acute intracranial abnormality. ULTRASOUND OF THE CAROTID ARTERIES Common carotid peak systolic velocity (cm/sec): RIGHT: 84 LEFT: 103 ICA proximal peak systolic velocity (cm/sec): RIGHT: 58 LEFT: 71 ICA mid peak systolic velocity (cm/sec): RIGHT: 65 LEFT: 59 ICA distal peak systolic velocity (cm/sec): RIGHT: 75 LEFT: 57 ICA/CC peak systolic ratio: RIGHT: 0.9 LEFT: 0.7 Antegrade flow was shown in the vertebral arteries. The external carotid arteries are patent. IMPRESSION: 1. There is no sonographic evidence of hemodynamically significant stenosis in the right or left carotid arterial system. 2. Antegrade flow is shown in the vertebral arteries. MRI OF THE BRAIN COMBO IMPRESSION: No acute intracranial abnormality. Echocardiogram This was essentially a normal study. Left Sided Facial Numbness: Resolved now. Atypical for CVA. R/O r TIA vs atypical migraine attach ( hx of migraine in past ) Clinically & hemodynamically stable. -CT Head & Brain MRI is negative for any acute finding. -Echocardiogram is normal -carotid Duplex is normal -Noted Neurology consult. Thanks for input. Alcohol Intoxication: ETOH level > 200 on admission. Stable now. No signs of withdrawal. -Counselled about cutting down on alcohol. History Tobacco Abuse: Smoking cessation counselling provided -Nicotine patch Depression: Continue home medications. Code Status: FULL CODE DVT Prophylaxis: SCD Disposition: Discharge home later today. Follow up with PCP within 3-5 days after discharge. Follow up Neurology as outpatient. l Vital Signs: Date Time Temp Pulse Resp B/P Pulse Ox O2 Delivery O2 Flow Rate FiO2 07/12/16 08:00 36.6 71 18 115/75 97 07/12/16 04:50 36.4 81 18 128/80 96 Room Air 07/12/16 04:05 Room Air 07/12/16 00:21 36.8 75 18 118/74 96 Room Air 07/12/16 00:05 Room Air 07/11/16 20:12 36.7 88 16 113/73 98 Room Air 07/11/16 20:05 Room Air 07/11/16 16:20 Room Air 07/11/16 16:10 36.8 73 18 100/64 100 Room Air 07/11/16 12:00 95 Room Air 07/11/16 11:01 36.7 84 20 112/72 95 Room Air Lab Results: Results Past 24 Hours Test 07/12/16 06:51 Range/Units White Blood Count 6.79 4.8-10.8 K/uL Red Blood Count 4.41 4.2-5.4 M/uL Hemoglobin 14.1 12.0-16.0 g/dL Hematocrit 41.6 37-47 % Mean Corpuscular Volume 94.3 80-100 fL Mean Corpuscular Hemoglobin 32.0 25-34 pg Mean Corpuscular Hemoglobin Concent 33.9 32-36 g/dl RDW Standard Deviation 47.2 36.4-46.3 fL RDW Coefficient of Variation 13.7 11.5-14.5 % Platelet Count 238 130-400 K/uL Mean Platelet Volume 10.1 7.4-10.4 fL Sodium Level 142 136-145 mmol/L Potassium Level 4.1 3.5-5.1 mmol/L Chloride Level 110 98-107 mmol/L Carbon Dioxide Level 24 21-32 mmol/L Anion Gap 8.0 3-11 mmol/L Blood Urea Nitrogen 8 7-18 mg/dl Creatinine 0.88 0.60-1.20 mg/dl Est Creatinine Clear Calc Drug Dose 71.9 ml/min Estimated GFR () 91.3 Estimated GFR (Non- 78.8 BUN/Creatinine Ratio 9.5 10-20 Random Glucose 83 70-99 mg/dl Calcium Level 8.5 8.5-10.1 mg/dl Phosphorus Level 2.7 2.5-4.9 mg/dl Magnesium Level 2.1 1.8-2.4 mg/dl
[2016-07-12] MEDS ORDERED: [UNRECOGNIZED DRUG - CODE] IM (09:34)
--- NOTE | 2016-07-12 09:35 | Discharge Instructions ---
Discharge Instructions Admission Reason for Admission: Lt Sided Facial Numbness And Tingling,Tia Discharge Discharge Diagnosis / Problem: Left Sided Facial numbness (Resolved) Discharge Goals Goal(s): Decrease discomfort, Improve function, Increase independence, Improve disease control, Improve nutritional status, Learn about illness, Diagnostic testing, Therapeutic intervention Activity Recommendations Activity Limitations: resume your previous activity Lifting Limitations: none Exercise/Sports Limitations: as tolerated May Resume Sexual Activity: when tolerated Shower/Bathe: no limitations . Instructions / Follow-Up Instructions / Follow-Up Follow up with PCP within 3-5 days after discharge. Follow up Neurology as outpatient. Current Hospital Diet Patient's current hospital diet: Regular Diet Discharge Diet Recommended Diet: Regular Diet Pending Studies Studies pending at discharge: no Laboratory Results Lipid Panel Test 07/11/16 06:50 Range/Units Triglycerides Level 119 0-150 mg/dl Cholesterol Level 133 0-200 mg/dl HDL Cholesterol 52 mg/dl Cholesterol/HDL Ratio 2.6 LDL Cholesterol, Calculated 57 mg/dl Medical Emergencies . Who to Call and When: Medical Emergencies: If at any time you feel your situation is an emergency, please call 911 immediately. . Non-Emergent Contact Non-Emergency issues call your: Primary Care Provider . . "Provider Documentation" section prepared by Anthony Lundberg. VTE Core Measure Inpt VTE Proph given/why not?: Kenroy Grace, ONUR's
--- NOTE | 2016-07-12 09:38 | Discharge Summary ---
Discharge Summary Admission Date: Jul 11, 2016 at 01:29 Discharge Date: Jul 12, 2016 Discharge Disposition: Home Principal Diagnosis: Left Sided Facial Numbness (Resolved) Alcohol Intoxication Secondary Diagnoses/Problems: Depression Tobacco Use Procedures: CT Head MRI Brain Echocardiogram Carotid Duplex Vaccinations: NONE Consultations: Neurology Pending Studies/Follow-Up: May need outpatient Neurology evaluation Medication Reconciliation New Medications: Thiamine HCl (Thiamine HCl) 100 Mg/Ml Inj 100 MG IM QAM, #90 Continued Medications: Acetaminophen (Tylenol) 500 Mg Tab 1000 MG PO Q6H PRN for Pain, TAB Citalopram Hydrobromide (Celexa) 40 Mg Tab 40 MG PO DAILY, TAB Ibuprofen Tab (Advil) 200 Mg Tab 400-600 MG PO Q6H PRN for Pain Admission Information HPI (per Admitting provider): This a 46 yo F with Hx of Depression , tobacco abuse disorder, ETOH abuse , presented to ED with complain of sudden onset of left sided facial numbness, left arm weakness she mentioned her left side of mouth including teeth and gum felt numb had left sided headache, associated with transient blurred vision resolved after arrival to ED pt is very a very poor historian appears to be intoxicated , disheveled could not tell be when the symptom started she drinks heavily approx 12-20 beer in weekend admits of drinking 8 beers prior to arrival to ED no hx of trauma or fall denies of any chest pain , SOB , had dizzy spell ,felt lightheaded when standing up , no syncope in the ED CT head was negative for CVA her symptom markedly improved after few hours serum ETOH leval > 200 Physical Exam (per Admitting): General Appearance: no apparent distress Head: normocephalic, atraumatic Eyes: normal inspection, PERRL, EOMI Neck: supple, thyroid normal, no carotid bruits, trachea midline Respiratory/Chest: chest non-tender, lungs clear, normal breath sounds, no respiratory distress Cardiovascular: regular rate, rhythm, no edema, no gallop, no JVD, no murmur , normal peripheral pulses Abdomen/GI: normal bowel sounds, non tender, soft Extremities/Musculoskelatal: normal inspection, no calf tenderness, normal capillary refill, no pedal edema 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 ULTRASOUND OF THE CAROTID ARTERIES Common carotid peak systolic velocity (cm/sec): RIGHT: 84 LEFT: 103 ICA proximal peak systolic velocity (cm/sec): RIGHT: 58 LEFT: 71 ICA mid peak systolic velocity (cm/sec): RIGHT: 65 LEFT: 59 ICA distal peak systolic velocity (cm/sec): RIGHT: 75 LEFT: 57 ICA/CC peak systolic ratio: RIGHT: 0.9 LEFT: 0.7 Antegrade flow was shown in the vertebral arteries. The external carotid arteries are patent. IMPRESSION: 1. There is no sonographic evidence of hemodynamically significant stenosis in the right or left carotid arterial system. 2. Antegrade flow is shown in the vertebral arteries. MRI OF THE BRAIN COMBO IMPRESSION: No acute intracranial abnormality. Echocardiogram This was essentially a normal study. Left Sided Facial Numbness: Resolved now. Atypical for CVA. R/O r TIA vs atypical migraine attach ( hx of migraine in past ) Clinically & hemodynamically stable. -CT Head & Brain MRI is negative for any acute finding. -Echocardiogram is normal -carotid Duplex is normal -Noted Neurology consult. Thanks for input. Alcohol Intoxication: ETOH level > 200 on admission. Stable now. No signs of withdrawal. -Counselled about cutting down on alcohol. -Started Thiamine History Tobacco Abuse: Smoking cessation counselling provided -Nicotine patch Depression: Continue home medications. Code Status: FULL CODE DVT Prophylaxis: SCD Disposition: Discharge home later today. Follow up with PCP within 3-5 days after discharge. Follow up Neurology as outpatient. l Total time spent on discharge = 35 minutes. This includes examination of the patient, discharge planning, medication reconciliation, and communication with other providers. Discharge Instructions Discharge Goals Goal(s): Decrease discomfort, Improve function, Increase independence, Improve disease control, Improve nutritional status, Learn about illness, Diagnostic testing, Therapeutic intervention Activity Recommendations Activity Limitations: resume your previous activity Lifting Limitations: none Exercise/Sports Limitations: as tolerated May Resume Sexual Activity: when tolerated Shower/Bathe: no limitations . Instructions / Follow-Up Instructions / Follow-Up Follow up with PCP within 3-5 days after discharge. Follow up Neurology as outpatient. Additional Copies To Love Chan D.O.
[2016-07-12 10:34] VITALS: BP 115/75; PULSE 71; TEMP 36.6; O2SAT 97
[2016-07-13] MEDS ORDERED: CHLORDIAZEPOXIDE 25 MG CAP PO SCH (08:00)
[2016-07-14] MEDS ORDERED: CHLORDIAZEPOXIDE 10 MG CAP PO SCH (09:00)
== END 2016-07-12 11:55 | disposition home or self-care (01) ==
LOC: ENRESERVTM → ENRESERVDT → EDBD 23:23 → C.EDB 23:26 → C.MED 07-11 01:29
PROVIDERS: ADMIT Hospitalist; ATTEND Emergency Medicine
DX: R20.0 Anesthesia of skin (principal); F10.120 Alcohol abuse with intoxication, uncomplicated; F17.200 Nicotine dependence, unspecified, uncomplicated; F32.9 Major depressive disorder, single episode, unspecified; Z85.3 Personal history of malignant neoplasm of breast; Z83.3 Family history of diabetes mellitus; Z82.49 Family history of ischemic heart disease and other diseases of the circulatory system

== ENCOUNTER 2016-10-25 13:27 | Emergency (ER) | payer OTHER ==
[~2016-10-25] VITALS: Ht 165.1 cm; Wt 58.3 kg
[~2016-10-25 13:27] MED LIST changes: -CITA10TA8 PO; +CITA40TA12 PO; -OXYC1TAB3 PO; +[UNRECOGNIZED DRUG - CODE] IM
[2016-10-25 13:29] VITALS: TEMP 36.7; Ht 165.1 cm; Wt 58.3 kg
[2016-10-25] MEDS ORDERED: OXYCODONE HCL IR 5 MG TAB (IMMEDIATE RELEASE) PO STA (13:43)
--- NOTE | 2016-10-25 13:43 | EMERGENCY ROOM VISIT NOTE ---
History Report prepared by Flor: Juwan Lewis Under the Supervision of: Dr. Samuel Sears M.D. First contact with patient: 13:35 Chief Complaint: BACK PAIN Stated Complaint: PAIN IN BUTT TO LOWER BACK AND DOWN LEFT LEG History of Present Illness The patient is a 46 year old female who presents to the Emergency Room with complaints of persistent lower back pain since yesterday. The pain radiates to her buttocks and down to her left knee. The pain is worsened with movement. Yesterday Advil did relieve that pain but today it is no longer helping. She denies any loss of motor control or sensation of the left leg. She also denies incontinence of bowel or bladder. She denies any recent heavy lifting or falls. Patient denies abdominal pain. The patient has no known drug allergies. She was on Percocet in the past for similar issues, which she tolerated well. Source of History: patient Onset: yesterday Position: back (lower) Timing: other (persistent) Modifying Factors (Worsening): movement Modifying Factors (Relieving): ibuprofen (yesterday only, not today) Associated Symptoms: No abdominal pain, No numbness, No weakness Note: + radiation down the left leg Review of Systems See HPI for pertinent positives & negatives. A total of 10 systems reviewed and were otherwise negative. Past Medical & Surgical Medical Problems: (1) History of blood clot, left arm (2) left sided facial numbness (3) Numbness and tingling of left side of face (4) TIA (transient ischemic attack) Surgical Problems: (1) No history of previous surgery Family History FH: cancer Social History Smoking Status: Current Every Day Smoker Alcohol Use: occasionally Marital Status: Occupation Status: employed Current/Historical Medications Scheduled Citalopram Hydrobromide (Celexa), 40 MG PO DAILY Methylprednisolone (Medrol Dosepak), 1 PKT PO UD Thiamine HCl (Thiamine HCl), 100 MG IM QAM Scheduled PRN Acetaminophen (Tylenol), 1,000 MG PO Q6H PRN for Pain Ibuprofen Tab (Advil), 400-600 MG PO Q6H PRN for Pain Oxycodone Immediate Rel Tab (Roxicodone Ir), 1-2 TAB PO Q4H PRN for Severe Pain Allergies Coded Allergies: No Known Allergies (Verified , 07/11/16) Physical Exam Vital Signs Date Time Temp Pulse Resp B/P Pulse Ox O2 Delivery O2 Flow Rate FiO2 10/25/16 13:29 36.7 92 20 108/66 97 Room Air Physical Exam GENERAL: Patient is uncomfortable appearing in moderate distress. HEENT: No acute trauma, normocephalic atraumatic, mucous membranes moist, no nasal congestion, no scleral icterus. NECK: No stridor, no adenopathy, no meningismus, trachea is midline. LUNGS: No dyspnea. Clear to auscultation and equal bilaterally. No wheeze, no rhonchi. HEART: Regular rate and rhythm. No murmurs, rubs, gallops appreciated. ABDOMEN: Soft, nontender, bowel sounds positive, no masses appreciated, no peritonitis. BACK: No midline tenderness, no CVA tenderness EXTREMITIES: Normal motion all extremities, no cyanosis, no edema. NEUROLOGIC: Alert and oriented, no acute motor or sensory deficits, no focal weakness, cranial nerves grossly intact. SKIN: No rash, no jaundice, no diaphoresis. Medical Decision & Procedures ER Provider Diagnostic Interpretation: X ray results are stated below per my interpretation and the radiologist's interpretation. Medications Administered Medications (Trade) Dose Ordered Sig/Mraci Route Start Time Stop Time Status Last Admin Dose Admin Oxycodone HCl (Roxicodone Immediate Rel Tab) 10 mg NOW STAT PO 10/25/16 13:43 10/25/16 13:45 DC 10/25/16 13:52 10 MG ED Course 1336: The patient was evaluated in room B12b. A complete history and physical exam was performed. 1343: Oxycodone IR 10 mg PO. 1445: Discussed the results with the patient. She verbalized understanding and agreement of the treatment plan. The patient is ready for discharge. Medical Decision Differential: Musculoskeletal, Disc Herniation, Fracture, Cord Compression, Discitis, Infectious, Aortic Pathology, Renal Colic, UTI/Pyelonephritis, Acute Exacerbation of Chronic Pain, Sciatica, Cauda Equina, amongst other pathologies entertained. 46 yr old female with left sided low back pain radiating to lateral mid left leg. Consistent with acute sciatica. No neuro deficits. Pulses intact. No rashes/swelling. Abdomen soft, no UTI symptoms. Is not IV drug abuser, is without midline TTP nor swelling and with without fevers. Stable and feeling vastly improved with Oxy IR. Discussed restrictions/risks of narcotics. Will start on medrol as outpatient. Stressed PCP follow up and evaluation. Reviewed symptoms requiring immediate RTED. Impression Primary Impression: Left-sided low back pain with sciatica Scribe Attestation The scribe's documentation has been prepared under my direction and personally reviewed by me in its entirety. I confirm that the note above accurately reflects all work, treatment, procedures, and medical decision making performed by me. Departure Information Dispostion Home / Self-Care Prescriptions Methylprednisolone (MEDROL DOSEPAK) 4 Mg Parker 1 PKT PO UD for 6 Days, #1 PKT Prov: Samuel Sears M.D. 10/25/16 Oxycodone Immediate Rel Tab (ROXICODONE IR) 5 Mg Tab 1-2 TAB PO Q4H Y for Severe Pain, #20 TAB Prov: Samuel Sears M.D. 10/25/16 Referrals No Doctor, Assigned (PCP) Forms HOME CARE DOCUMENTATION FORM, IMPORTANT VISIT INFORMATION Patient Instructions ED Sciatica, My [facility] Additional Instructions You have received a narcotic pain medication prescription. These medications may cause drowsiness and should not be used with other sedative medications. Do not drive, drink alcohol, perform dangerous activities, nor make important decisions after taking these medications. half-way use or inappropriate use may lead to addiction. Problem Qualifiers Primary Impression: Left-sided low back pain with sciatica Chronicity: acute Sciatica laterality: sciatica of left side Qualified Codes: M54.42 - Lumbago with sciatica, left side
--- NOTE | 2016-10-25 14:31 | DIAGNOSTIC IMAGING REPORT ---
L-SPINE MIN 4 VIEWS ROUTINE CLINICAL HISTORY: Low back pain. COMPARISON: Lumbar spine radiograph April 10, 2016. FINDINGS: Alignment of the lumbar spine is anatomic. Vertebral body heights are maintained. There is no fracture or suspicious lesion. There preserved disc spaces with mild endplate osteophytosis. Pelvic calcifications likely reflect phleboliths. IMPRESSION: 1. No acute lumbar spine fracture or subluxation. 2. Minimal multilevel degenerative disc disease. Electronically signed by: Yariel Renner M.D. 10/25/2016 2:30 PM Dictated Date/Time: 10/25/2016 2:29 PM
[2016-10-25] MEDS ORDERED: OXYC1TAB3 PO (14:44)
[2016-10-25] MEDS ORDERED: METH4PAK PO (14:44)
[2016-10-25 15:08] VITALS: BP 107/66; PULSE 88; O2SAT 95
== END 2016-10-25 15:29 | disposition home or self-care (01) ==
LOC: C.EDB 13:28
DX: M54.42 Lumbago with sciatica, left side (principal); Z86.718 Personal history of other venous thrombosis and embolism; Z86.73 Personal history of transient ischemic attack (TIA), and cerebral infarction without residual deficits; Z80.9 Family history of malignant neoplasm, unspecified; F17.210 Nicotine dependence, cigarettes, uncomplicated; Z79.899 Other long term (current) drug therapy

== ENCOUNTER 2017-10-04 12:34 | Emergency (ER) | payer OTHER ==
[~2017-10-04] VITALS: Ht 167.6 cm; Wt 62.8 kg
[~2017-10-04 12:34] MED LIST changes: -[UNRECOGNIZED DRUG - CODE] IM
[2017-10-04 12:42] VITALS: TEMP 36.7; Ht 167.6 cm; Wt 62.8 kg
[2017-10-04] MEDS ORDERED: AMOXICILLIN/CLAVULANATE TAB 875 MG TAB PO STA (12:59)
[2017-10-04] MEDS ORDERED: AMOX875T PO (13:02)
[2017-10-04] MEDS ORDERED: ACET-749 PO (13:09)
--- NOTE | 2017-10-04 13:10 | EMERGENCY ROOM VISIT NOTE ---
ED Visit Note First contact with patient: 12:47 CHIEF COMPLAINT: Toothache HISTORY OF PRESENT ILLNESS: This 47-year-old female patient presented to the emergency department, ambulatory, with a progressive toothache for past 1 day. The patient states her whole face hurts, bilateral ears hurt, and she does have a headache. She reports pain in the left lower jaw and a lump in the right roof of her mouth. The patient reports having terrible teeth, and states she is scheduled to have a consult to have the rest of her teeth removed. She rates her pain as sharp and 8/10. She has been taking ibuprofen with no relief of the pain. Denies facial swelling or fever. The patient denies any discharge from the mouth. REVIEW OF SYSTEMS: A 6 system review of systems was completed with positives and pertinent negatives listed in the HPI. ALLERGIES: None MEDICATIONS: Celexa PMH: Depression SOCIAL HISTORY: The patient lives locally with family. She denies drug, alcohol use. She admits to smoking 1 pack of cigarettes per day. PHYSICAL EXAM: Vitals are noted on the nurse's note and reviewed by myself. Vital signs stable. Temperature 36.7C orally. GENERAL: This is a 47-year-old female, in no acute distress, nondiaphoretic, well-developed well-nourished. Mouth: The patient's remaining teeth are all very carious. There is no specific gum swelling or tenderness, and no obvious signs of abscess or drainage noted. The salivary gland in the roof of the mouth is swollen and tender and does appear to be occluded. The remainder of the pharynx and tonsils are without erythema, edema, or exudate. The airway is patent. There is no facial swelling, cervical or submandibular lymphadenopathy. The patient appears uncomfortable and in pain. The patient has overall very poor dental hygiene. EARS: External auditory canals clear, tympanic membranes pearly jacinto without erythema or effusion bilaterally. ED COURSE: The patient was seen and evaluated as well. Her symptoms are consistent with Sialadenitis. She will be started on antibiotics due to the very poor dentition and the severity of her symptoms, however I did discuss with her that often eating sour candy will help to increase the flow of saliva and often treat the symptoms. The patient will be given a short course of pain medication, however I discussed with her proper OTC management of pain. She was encouraged to contact her dentist to schedule an appointment to follow-up this week. The patient verbalizes understanding. Discharge instructions reviewed, the patient was discharged home in good condition. PDMP was consulted with no suspicious findings noted. I attest that I have personally reviewed the patient's current medication list. Blood Pressure Screening: Patient was found to have a slightly elevated blood pressure due to circumstances. I do not believe that the patient requires hypertension monitoring. Differential diagnosis includes sialadenitis, odontalgia, periapical abscess, acute sinusitis, osteomyelitis, gingivitis, pulpitis, dental caries, periodontitis, malignancy, and others DIAGNOSIS: Sialadenitis, odontalgia The chart was completed utilizing [employer] Speech voice recognition software. Grammatical errors, random word insertions, pronoun errors, and incomplete sentences are an occasional consequence of this system due to software limitations, ambient noise, and hardware issues. Any formal questions or concerns about the content, text, or information contained within the body of this dictation should be directly addressed to the provider for clarification. Problem List Medical Problems: (1) History of blood clot, left arm Status: Chronic Current/Historical Medications Scheduled Amoxicillin & Pot Clavulanate (Augmentin 875-125 mg), 1 TAB PO BID Citalopram Hydrobromide (Celexa), 40 MG PO DAILY Scheduled PRN Acetaminophen (Tylenol), 1,000 MG PO Q6H PRN for Pain Acetaminophen/Codeine (Tylenol W/Codeine #3), 1 TAB PO Q4H PRN for Pain Ibuprofen Tab (Advil), 400-600 MG PO Q6H PRN for Pain Allergies Coded Allergies: No Known Allergies (Verified , 10/25/16) Vital Signs Date Time Temp Pulse Resp B/P (MAP) Pulse Ox O2 Delivery O2 Flow Rate FiO2 10/04/17 13:20 99 22 168/91 95 10/04/17 12:42 36.7 81 18 197/108 99 Room Air Medications Administered Medications (Trade) Dose Ordered Sig/Marci Route Start Time Stop Time Status Last Admin Dose Admin Amoxicillin/ Clavulanate Potassium (Augmentin Tab) 875 mg ONE STAT PO 10/04/17 12:59 10/04/17 13:00 DC 10/04/17 13:18 875 MG Departure Information Impression Primary Impression: Sialadenitis Additional Impression: Odontalgia Dispostion Home / Self-Care Condition GOOD Prescriptions Acetaminophen/Codeine (Tylenol W/Codeine #3) 300 Mg/30 Mg Tab 1 TAB PO Q4H Y for Pain, #12 TAB For Initial Treatment Prov: Marlyn Ghosh PA-C 10/04/17 Amoxicillin & Pot Clavulanate (Augmentin 875-125 mg) 1 Tab Tab 1 TAB PO BID for 10 Days, #19 TAB Prov: Marlyn Ghosh PA-C 10/04/17 Referrals Love Chan D.O. (PCP) Patient Instructions ED [facility] Additional Instructions You have been treated in the Emergency Department for Dental Pain. As discussed , I suspect a worsening of your symptoms are related to sialadenitis, or an inflammation of a salivary gland. You should suck on sour candies such as lemon drops which will help increase the saliva production and help to drain the inflammation/stone which is causing the obstruction. You have been prescribed Tylenol #3 to be used for pain control. This is a narcotic medication. You cannot drive or consume alcohol while on this medicine. This medicine should only be used for pain that cannot be controlled with [id number] pain medicines. You were prescribed Augmentin to be taken twice daily. This is an antibiotic. All antibiotics have the potential to cause diarrhea. Stop this medication and contact a medical provider if you were to develop any significant adverse side effects including: wheezing, shortness of breath, passing out, vomiting, or a diffuse rash. Always take antibiotics as directed and COMPLETE the ENTIRE course regardless of the improvement of your symptoms. For pain control, you can use the following [id number] medicines (if >12 yo): Ibuprofen(Motrin, Advil) may be used for fever or pain. Use 600mg every six hours as needed. Take with food. Avoid using more than 2400mg in a 24 hour period. Do not use 2400mg per day for more than three consecutive days without physician direction. Prolonged inappropriate use can lead to stomach upset or ulcers. (AND/OR) Acetaminophen(Tylenol) may be used for fever or pain. Use 1000mg every six hours as needed. Avoid using more than 3000mg in a 24 hour period. Note the acetaminophen dosage in the Tylenol #3 you have been given. Refrain from smoking cigarettes or using chewing tobacco until you have been evaluated by your dentist. Keeping beverages lukewarm and consuming soft foods can decrease your pain. Warm compresses over the affected area may offer some relief. You MUST seek evaluation of your dental pain by a dentist following your visit to the Emergency Department. The Emergency Department is not capable of treating dental issues long-term. You should call your dentist as soon as possible to make an appointment for evaluation of your dental pain. Return to the emergency department if you develop the following symptoms despite treatment course outlined above: fever, intractable pain, increased redness, swelling, or purulent discharge. Problem Qualifiers
[2017-10-04 13:20] VITALS: BP 168/91; PULSE 99; O2SAT 95
== END 2017-10-04 13:21 | disposition home or self-care (01) ==
LOC: C.EDB 12:35 → C.EDD 13:21
DX: K11.20 Sialoadenitis, unspecified (principal); K02.9 Dental caries, unspecified; F17.210 Nicotine dependence, cigarettes, uncomplicated; F32.9 Major depressive disorder, single episode, unspecified